=== PATIENT | female | born 1950 | race Caucasian/White ===

== ENCOUNTER → 2016-08-31 | Outpatient (CLI) | payer BC ==
[~2016-08-31] MED LIST: ASPI81TA28 PO; ASPITAB71 PO; CLR10 PO; LANS15CA6 PO
[2016-08-31 13:34] LABS: BASO % 0.3 %; BASO ABS # 0.03 K/uL (0-0.2); COMPLETE YES; HEMATOCRIT 40.5 % (37-47); IG% 0.4 %; LYMPH % 32.8 %; MEAN CELL VOLUME 88.4 fL (80-100); MEAN CORPUSCULAR HGB CONC 32.8 g/dl (32-36); MEAN PLATELET VOLUME 9.3 fL (7.4-10.4); MONO % 7.3 %; NEUT % 56.2 %; PLATELET COUNT 279 K/uL (130-400); RED BLOOD COUNT 4.58 M/uL (4.2-5.4); WHITE BLOOD COUNT 10.66 K/uL (4.8-10.8)
[2016-08-31 14:04] LABS: ALT/SGPT 29 U/L (12-78); AST/SGOT 11 U/L (15-37); BLOOD UREA NITROGEN 13 mg/dl (7-18); BUN/CREATININE RATIO 19.2 (10-20); CALCIUM 8.6 mg/dl (8.5-10.1); CARBON DIOXIDE 29 mmol/L (21-32); CHLORIDE 104 mmol/L (98-107); CREATININE 0.66 mg/dl (0.60-1.20); GLUCOSE 87 mg/dl (70-99); POTASSIUM 3.8 mmol/L (3.5-5.1); SODIUM 142 mmol/L (136-145)
[2016-08-31 14:07] LABS: ALKALINE PHOSPHATASE 112 U/L (45-117); CHOLESTEROL 225 mg/dl (0-200); CHOLESTEROL/HDL RATIO 4.4; HDL CHOLESTEROL 51 mg/dl; LDL CHOLESTEROL CALCULATED 126 mg/dl; TRIGLYCERIDES 239 mg/dl (0-150); VERY LOW DENSITY LIPOPROT CALC 48 mg/dl
== END | disposition home or self-care (01) ==
LOC: C.LABMFLN 09:03
PROVIDERS: ATTEND Family Medicine
DX: K21.9 Gastro-esophageal reflux disease without esophagitis (principal); E78.5 Hyperlipidemia, unspecified

== ENCOUNTER → 2016-09-03 | Outpatient (CLI) | payer BC ==
--- NOTE | 2016-09-03 09:58 | DIAGNOSTIC IMAGING REPORT ---
CHEST 2 VIEWS ROUTINE CLINICAL HISTORY: R07.89 Atypical chest [id number] dyspnea COMPARISON STUDY: No previous studies for comparison. FINDINGS: The bones soft tissues and hemidiaphragms are normal. The cardiomediastinal silhouette is normal. The lungs are clear. The pulmonary vasculature is normal. IMPRESSION: Negative chest. Electronically signed by: Zaire Moscoso M.D. 09/03/2016 9:57 AM Dictated Date/Time: 09/03/2016 9:57 AM
--- NOTE | 2016-09-03 10:11 | EXERCISE STRESS ECHO ---
*NOTICE TO RECEIVING CONSTITUTION PARTY AGENCY This information is strictly Confidential and protected under [place] law. [place] law prohibits you from making any further disclosure of this information unless further disclosure is expressly permitted by the written consent of the person to whom it pertains or is authorized by law. A general authorization for the release of medical or other information is not sufficient for this purpose. Hospital accepts no responsibility if the information is made available to any other person, INCLUDING THE PATIENT. Interpretation Summary * Name: RADHA DUGGAN Study Date: 09/03/2016 09:07 AM BP: 122/72 mmHg * Patient Location: [facility] HR: 77 * : 1950 (M/d/yyyy) Gender: Female Height: 64 in * Age: 65 yrs Ethnicity: [place] Weight: 192 lb * Ordering Physician: Luz Blas * Referring Physician: Luz Blas * Performed By: María Marr RDCS * * Reason For Study: CHEST PAIN * BSA: 1.9 m2 * History: CHEST PAIN * -- Conclusions -- * Normal stress echocardiogram at 7.5 METS and a peak heart rate of 100% maximum predicted. * No exercise induced chest pain. * No ECG changes. * Baseline echocardiogram notes normal left ventricular systolic function and evidence of diastolic dysfunction. Procedure Details * ECHOEX, CPT #56492 Left Ventricle * The left ventricle is normal in size. * There is borderline concentric left ventricular hypertrophy. * Left ventricular systolic function is normal. * Ejection Fraction = 55-60%. * Resting wall motion: Normal. Stress wall motion: Appropriate increase in Left ventricular systolic function and decrease in cavity size. No stress induced segmental wall motion abnormalities. Right Ventricle * The right ventricle is not well visualized. * The right ventricular systolic function is normal as assessed by tricuspid annular plane systolic excursion (TAPSE) (normal >1.5 cm). Atria * The left atrium is mildly dilated. * Right atrial size is normal. * There is no evidence of atrial septal defect, but resolution does not allow assessment for a patent foramen ovale. Mitral Valve * The mitral valve is grossly normal. * There is no mitral valve stenosis. * Significant mitral regurgitation is absent. Tricuspid Valve * The tricuspid valve is not well visualized, but is grossly normal. * There is mild tricuspid regurgitation. Aortic Valve * The aortic valve is normal in structure and function. * No hemodynamically significant valvular aortic stenosis. * No aortic regurgitation is present. Pulmonic Valve * The pulmonary valve is not well seen, but the Doppler examination is normal without significant regurgitation or stenosis. Great Vessels * The aortic root is normal size. * The pulmonary artery is not well visualized, but is probably normal size. Pericardium * There is no pericardial effusion. Stress Parameters * Normal baseline electrocardiogram. * Stress ECG: No ST changes. No arrhythmias. * The stress portion of this study was personally supervised by the undersigned interpreting physician. * Rest heart rate was '77' BPM. * Rest blood pressure was '122/72' * Maximum heart rate achieved was 157 bpm. * Maximum heart rate was 100 % of maximum age-predicted heart rate. * Maximum blood pressure was '207/79' * Total exercise time was '6:20' * Maximum exercise MET level achieved was '7.50' METS * Maximum treadmill speed was '3.40' miles per hour. * Maximum treadmill elevation was '14.00'% grade. * Exercise was terminated due to 'ACHIEVING TARGET HR' Left Ventricular Diastolic Function * Grade I diastolic dysfunction, (abnormal relaxation pattern). MMode 2D Measurements and Calculations IVSd 1.3 cm IVSs 1.8 cm LVIDd 4.1 cm LVIDs 3.0 cm LVPWd 1.0 cm LVPWs 1.4 cm IVS/LVPW 1.3 FS 27.4 % EDV(Teich) 73.1 ml ESV(Teich) 33.8 ml EF(Teich) 53.7 % EDV(cubed) 67.6 ml ESV(cubed) 25.9 ml EF(cubed) 61.7 % % IVS thick 33.9 % % LVPW thick 36.5 % LV mass(C)d 165.5 grams LV mass(C)dI 86.1 grams/m\S\2 LV mass(C)s 171.7 grams LV mass(C)sI 89.3 grams/m\S\2 SV(Teich) 39.3 ml SI(Teich) 20.4 ml/m\S\2 SV(cubed) 41.7 ml SI(cubed) 21.7 ml/m\S\2 Ao root diam 2.7 cm Ao root area 5.8 cm\S\2 LA dimension 3.4 cm LA/Ao 1.3 LVAd ap4 28.6 cm\S\2 LVLd ap4 7.8 cm EDV(MOD-sp4) 85.3 ml EDV(sp4-el) 89.0 ml LVAs ap4 15.5 cm\S\2 LVLs ap4 6.1 cm ESV(MOD-sp4) 34.6 ml ESV(sp4-el) 33.3 ml EF(MOD-sp4) 59.4 % EF(sp4-el) 62.5 % LVAd ap2 25.8 cm\S\2 LVLd ap2 7.8 cm EDV(MOD-sp2) 70.5 ml EDV(sp2-el) 72.5 ml LVAs ap2 13.7 cm\S\2 LVLs ap2 6.1 cm ESV(MOD-sp2) 28.2 ml ESV(sp2-el) 26.3 ml EF(MOD-sp2) 60.0 % EF(sp2-el) 63.7 % LVLd %diff -0.23 % EDV(MOD-bp) 77.7 ml LVLs %diff -0.92 % ESV(MOD-bp) 31.3 ml EF(MOD-bp) 59.6 % SV(MOD-sp4) 50.6 ml SI(MOD-sp4) 26.3 ml/m\S\2 SV(MOD-sp2) 42.3 ml SI(MOD-sp2) 22.0 ml/m\S\2 SV(MOD-bp) 46.3 ml SI(MOD-bp) 24.1 ml/m\S\2 SV(sp4-el) 55.7 ml SI(sp4-el) 29.0 ml/m\S\2 SV(sp2-el) 46.2 ml SI(sp2-el) 24.0 ml/m\S\2 Doppler Measurements and Calculations MV E max jennifer 98.1 cm/sec MV A max jennifer 118.4 cm/sec MV E/A 0.83 MV dec time 0.25 sec Ao V2 max 149.3 cm/sec Ao max PG 8.9 mmHg Ao max PG (full) 3.4 mmHg LV V1 max PG 5.6 mmHg LV V1 max 117.9 cm/sec
== END | disposition home or self-care (01) ==
LOC: C.CPL 07:55
PROVIDERS: ATTEND Family Medicine
DX: R07.89 Other chest pain (principal)

== ENCOUNTER → 2017-02-12 | Outpatient (CLI) | payer BC ==
[2017-02-12 13:39] LABS: CHOLESTEROL/HDL RATIO 4.7
== END | disposition home or self-care (01) ==
LOC: C.LABMFLN 08:53
PROVIDERS: ATTEND Family Medicine
DX: E78.5 Hyperlipidemia, unspecified (principal)

== ENCOUNTER → 2017-02-25 | Outpatient (CLI) | payer BC ==
--- NOTE | 2017-02-26 15:31 | MAMMOGRAPHY REPORT ---
BILATERAL DIGITAL SCREENING MAMMOGRAM TOMOSYNTHESIS WITH CAD: 02/25/2017 CLINICAL HISTORY: Routine screening. Patient has no complaints. TECHNIQUE: Breast tomosynthesis in addition to standard 2D mammography was performed. Current study was also evaluated with a Computer Aided Detection (CAD) system. COMPARISON: Comparison is made to exams dated: 08/27/2014 mammogram, 10/23/2013 ultrasound, 10/23/2013 m ammogram, and 09/07/2013 mammogram - [facility]. BREAST COMPOSITION: The tissue of both breasts is heterogeneously dense, which may obscure small mas ses. FINDINGS: There is an oval 8 mm mass in the left slightly medial posterior breast on the cc view. Th is may project superiorly on the MLO view. Recommend spot compression tomosynthesis views and possib le breast ultrasound for further evaluation. The remainder of both breasts are stable compared to prior exams, without suspicious masses, calcific ations, or areas of architectural distortion noted. Circumscribed 8 mm mass in the left medial breas t middle depth is stable dating back to at least 2013 exam. IMPRESSION: ACR BI-RADS CATEGORY 0: INCOMPLETE EVALUATION: NEED ADDITIONAL IMAGING EVALUATION Left medial breast mass, for which additional imaging evaluation is recommended. The patient will be called to schedule an appointment. Approximately 10% of breast cancers are not detected with mammography. A negative mammographic report should not delay biopsy if a clinically suggestive mass is present. Marci Link M.D. /:02/26/2017 08:24:03 Ring Stamper: Rajwinder HUSAIN(Padmini)(M), [facility] letter sent: Addl Imaging 0 BI-RADS Code: ACR BI-RADS Category 0: Incomplete Evaluation: Need Additional Imaging Evaluation
== END | disposition home or self-care (01) ==
LOC: C.MAMM 10:59
PROVIDERS: ATTEND Family Medicine
DX: Z12.31 Encounter for screening mammogram for malignant neoplasm of breast (principal); N63 Unspecified lump in breast

== ENCOUNTER → 2017-10-07 | Outpatient (CLI) | payer OTHER ==
[2017-10-07 13:03] LABS: BASO % 0.5 %; BASO ABS # 0.04 K/uL (0-0.2); EOS % 3.3 %; EOS ABS # 0.27 K/uL (0-0.5); HEMATOCRIT 41.5 % (37-47); HEMOGLOBIN 13.6 g/dL (12.0-16.0); IG# 0.02 K/uL (0.00-0.02); LYMPH % 39.1 %; MEAN CELL VOLUME 87.7 fL (80-100); MEAN CORPUSCULAR HEMOGLOBIN 28.8 pg (25-34); MEAN CORPUSCULAR HGB CONC 32.8 g/dl (32-36); MEAN PLATELET VOLUME 9.6 fL (7.4-10.4); MONO % 5.7 %; MONO ABS # 0.47 K/uL (0.11-0.59); NEUT % 51.2 %; NEUT ABS # 4.19 K/uL (1.4-6.5); PLATELET COUNT 281 K/uL (130-400); RED CELL DISTRIBUTION WIDTH CV 13.6 % (11.5-14.5); RED CELL DISTRIBUTION WIDTH SD 43.5 fL (36.4-46.3); WHITE BLOOD COUNT 8.19 K/uL (4.8-10.8)
[2017-10-07 14:21] LABS: ALBUMIN 3.8 gm/dl (3.4-5.0); BLOOD UREA NITROGEN 17 mg/dl (7-18); CALCIUM 9.1 mg/dl (8.5-10.1); CARBON DIOXIDE 28 mmol/L (21-32); CREATININE 0.78 mg/dl (0.60-1.20); GLUCOSE 99 mg/dl (70-99); SODIUM 138 mmol/L (136-145)
[2017-10-07 14:34] LABS: CHOLESTEROL 236 mg/dl (0-200); LDL CHOLESTEROL CALCULATED 144 mg/dl; PHOSPHORUS 3.3 mg/dl (2.5-4.9)
== END | disposition home or self-care (01) ==
LOC: C.LABMFLN 09:06
PROVIDERS: ATTEND Family Medicine
DX: Z86.718 Personal history of other venous thrombosis and embolism (principal); E78.5 Hyperlipidemia, unspecified